=== PATIENT | male | born 1950 | race Caucasian/White ===

== ENCOUNTER 2017-11-03 07:47 | Day surgery (SDC) | payer MEDICARE ==
[~2017-11-03] VITALS: Ht 182.9 cm; Wt 102.1 kg
[~2017-11-03 07:47] MED LIST: CENTRU3 PO; DILAUDID4 MG PO; METFORMIN500 M1 PO; PERCOCET 5/321 COMBO PO; ZESTRIL/PRINIV2.5 MG PO
[2017-11-03 11:30] VITALS: BP 106/65
== END 2017-11-03 12:03 | disposition home or self-care (01) ==
LOC: ENDO 07:47 → ORM 13:35 → ENDO 13:35 → ORM 17:15 → ENDO 18:45 → ORM 18:45
PROVIDERS: ATTEND Internal Medicine Gastroenterology
PROC: 0DB78ZX Excision of Stomach, Pylorus, Via Natural or Artificial Opening Endoscopic, Diagnostic (ICD-10-PCS; principal; 2017-11-03)
PROC: 0DJD8ZZ Inspection of Lower Intestinal Tract, Via Natural or Artificial Opening Endoscopic (ICD-10-PCS; 2017-11-03)
DX: K70.30 Alcoholic cirrhosis of liver without ascites (principal); I85.10 Secondary esophageal varices without bleeding; K29.50 Unspecified chronic gastritis without bleeding; K76.6 Portal hypertension; K31.89 Other diseases of stomach and duodenum; Q40.8 Other specified congenital malformations of upper alimentary tract; K57.30 Diverticulosis of large intestine without perforation or abscess without bleeding; K64.4 Residual hemorrhoidal skin tags; K64.8 Other hemorrhoids; B18.2 Chronic viral hepatitis C; I10 Essential (primary) hypertension; K25.9 Gastric ulcer, unspecified as acute or chronic, without hemorrhage or perforation; Z86.010 Personal history of colon polyps